=== PATIENT | female | born 1955 | race Caucasian/White ===

== ENCOUNTER → 2019-02-18 | Outpatient (CLI) | payer BC ==
--- NOTE | 2019-02-18 17:55 | RAD ---
DATE: 02/18/2019 EXAM: MAMMO ELIZ SCREENING BILATERAL HISTORY: Routine screening COMPARISON: 04/29/2012 and 03/22/2015 mammographic exams This study was interpreted with the benefit of Computerized Aided Detection (CAD). Breast Density: HETERO The breast parenchyma is heterogenously dense, which could reduce sensitivity of mammography. Breast parenchyma level C. FINDINGS: There is a mass in the middle one third retroareolar left breast measuring up to 3.1 cm diameter and located 6.5 cm from the nipple. It is irregularly marginated. No suspicious calcifications identified. Left axillary lymph nodes are present and mildly prominent in size but are probably upon correlation with 04/29/2012. Few benign right breast calcifications are present. No dominant right breast mass or distortion. IMPRESSION: Suspicious mass involving the left breast. Ultrasound exam of the left breast is recommended. Ultrasound of the left axilla recommended. BI-RADS CATEGORY: 0 INCOMPLETE: NEEDS ADDITIONAL IMAGING EVALUATION AND/OR PRIOR MAMMOGRAMS FOR COMPARISON. RECOMMENDED FOLLOW-UP: ADD ADDITIONAL IMAGING PQRS compliance statement: Patient information was entered into a reminder system with a target due date pending ultrasound imaging for the next mammogram. Mammography is a sensitive method for finding small breast cancers, but it does not detect them all and is not a substitute for careful clinical examination. A negative mammogram does not negate a clinically suspicious finding and should not result in delay in biopsying a clinically suspicious abnormality. "Our facility is accredited by the [employer] Mammography [employer]."
== END | disposition home or self-care (01) ==
LOC: PMG 10:13
PROVIDERS: ATTEND Physician Assistant
DX: N64.89 Other specified disorders of breast (principal); Z12.31 Encounter for screening mammogram for malignant neoplasm of breast
CPT/HCPCS: 77063; 77067

== ENCOUNTER → 2019-02-19 | Outpatient (CLI) | payer BC ==
--- NOTE | 2019-02-19 18:37 | RAD ---
Examination: BREAST LEFT History: Abnormal mammogram Comparison/Correlation: Screening mammogram 02/18/2019 Findings: There is a 3.6 cm x 3.4 cm x 3.5 cm irregularly marginated heterogeneous hypoechoic mass involving the left breast 6:00 region. There is a lymph node involving the left axilla measuring 1.6 cm x 0.9 cm x 0.6 cm which has a smooth contour but is noted to have cortical thickening. Smaller benign-appearing lymph nodes are also present. Impression: BI-RADS Category 4C-high suspicion for malignancy. Ultrasound-guided core biopsy of the mass and the suspicious left axillary lymph node is recommended. Discussed with Dr. Muñoz on 02/19/2019 at 9:37 AM. Electronically signed by: Misbah Arthur MD (02/19/2019 6:34 PM) [facility]
== END | disposition home or self-care (01) ==
LOC: US 08:27
PROVIDERS: ATTEND Physician Assistant
DX: N63.20 Unspecified lump in the left breast, unspecified quadrant (principal); R92.2 Inconclusive mammogram
CPT/HCPCS: 76641